=== PATIENT | male | born 1950 | race Hispanic/Latino ===

== ENCOUNTER 2018-07-16 05:34 | Outpatient (CLI) | payer BC, MEDICARE ==
[~2018-07-16] VITALS: Ht 167.6 cm; Wt 92.1 kg
[~2018-07-16 05:34] MED LIST: ASPI-586 PO; ASPI325T32 PO; HYDR-3820 PO; NAPR220C11 PO; TRAM50TA2 PO; WARF2.5T82 PO
== END 2018-07-16 11:04 | disposition home or self-care (01) ==
LOC: PREOP 05:34
PROVIDERS: ATTEND Surgery
DX: Z01.818 Encounter for other preprocedural examination (principal)

== ENCOUNTER 2018-07-23 10:56 | Day surgery (SDC) | payer BC, MEDICARE, OTHER ==
[~2018-07-23] VITALS: Ht 167.6 cm; Wt 92.1 kg
[2018-07-23] MEDS ORDERED: NS IV 500 ML 500 ML ONE (11:02)
[2018-07-23] MEDS ORDERED: NS IV 500 ML 500 ML IV PRN (11:06)
[2018-07-23] MEDS ORDERED: MIDAZOLAM 2 MG/2 ML (VERSED) VIAL IVP ONE (11:15)
[2018-07-23] MEDS ORDERED: LIDOCAINE JELLY 2% 6 ML SYRINGE MM PRN (11:15)
[2018-07-23] MEDS ORDERED: fentaNYL INJECTION 100 MCG/2 ML AMP IVP ONE (11:15)
[2018-07-23 11:23] VITALS: BP 122/77
[2018-07-23] MEDS ORDERED: LIDOCAINE JELLY 2% 6 ML SYRINGE ONE (11:30)
[2018-07-23] MEDS ORDERED: MIDAZOLAM 2 MG/2 ML (VERSED) VIAL ONE ×4 (11:30→11:31)
[2018-07-23] MEDS ORDERED: fentaNYL INJECTION 100 MCG/2 ML AMP ONE (11:30)
--- NOTE | 2018-07-23 13:56 | Conscious Sedation/ASA ---
Conscious Sedation Pre-Proced Time 13:30 ASA Score 2 For ASA 3 and 4: Consider anesthesia and medical clearance. Also, for patients with a history of failed moderate sedation consider anesthesia. Airway Lungs Heart ASA score ASA 1: a normal healthy patient ASA 2: a patient with a mild systemic disease (mid diabetes, controlled hypertension, obesity ASA 3: a patient with a severe systemic disease that limits activity (angina, COPD, prior Myocardial infarction) ASA 4: a patient with an incapacitating disease that is a constant threat to life (CHF, renal failure) ASA 5: a moribund patient not expected to survive 24 hrs. (ruptured aneurysm) ASA 6: a declared brain- patient whose organs are being harvested. For emergent operations, add the letter E after the classification Mallampati Classification Grade 2 Sedation Plan Analgesia, Amnesia, Plan communicated to team members, Discussed options with patient/fam, Discussed risks with patient/fam The patient is an appropriate candidate to undergo the planned procedure, sedation, and anesthesia. The patient immediately re-assessed prior to indication. JACQUELYN MARY MD July 23, 2018 13:56
--- NOTE | 2018-07-23 13:56 | Progress Note-Pre Operative ---
Pre-Operative Progress Note H&P Reviewed The H&P was reviewed, patient examined and no changes noted. Date Seen by Provider: July 23, 2018 Time Seen by Provider: 13:30 Date H&P Reviewed: July 23, 2018 Time H&P Reviewed: 13:30 Pre-Operative Diagnosis: screening o AJCQUELYN MARY MD July 23, 2018 13:56
--- NOTE | 2018-07-23 13:59 | Discharge Inst-Surgical ---
D/C Lap Instructions-TYAR Follow Up Activity as tolerated High Fiber Diet 25g or more per day Avoid Alcohol, Caffeine, Spicy [place] and Acid foods. Drink 64 fluid oz or more of fluids per day. Symptoms to Report: Fever over 101 degree F, Nausea/Vomiting If any problems/questions: Contact your physician or go to Emergency Room JACQUELYN MARY MD July 23, 2018 13:59
[2018-07-23] MEDS ORDERED: ACETAMINOPHEN 325 MG TABLET PO PRN (14:00)
[2018-07-23] MEDS ORDERED: ONDANSETRON 4 MG/2 ML (SDV) Z0FRAN IVP PRN (14:00)
[2018-07-23] MEDS ORDERED: morphine INJ 10 MG/ML 1ML (SYR OR VIAL) IVP PRN (14:00)
[2018-07-23] MEDS ORDERED: HYDROcodone/APAP 5 MG/325 MG (LORTAB) TAB PO PRN (14:00)
[2018-07-23 15:00] VITALS: BP 149/63
--- NOTE | 2018-07-23 15:13 | Progress Note-Post Operative ---
Post-Operative Progess Note Surgeon (s)/Front Desk Manager (s) Surgeon JACQUELYN MARY MD Front Desk Manager: none Pre-Operative Diagnosis screening colo Post-Operative Diagnosis mild chronic stage 2 ext and int hemorrhoids, small polyp rectum(2mm). Procedure & Operative Findings Date of Procedure 07/23/18 Procedure Performed/Findings colonoscopy with bx Anesthesia Type cs Estimated Blood Loss Estimated blood loss (mL): minimal Specimens/Packing Specimens Removed rectal polyp JACQUELYN MARY MD July 23, 2018 15:13
[2018-07-23 15:30] VITALS: BP 122/80
[2018-07-23 16:15] VITALS: BP 122/80
--- NOTE | 2018-07-23 21:47 | OPERATIVE REPORT ---
DATE OF SERVICE: 07/23/2018 ATTENDING PRIMARY CARE PHYSICIAN: Dr. Jad Correa. PREOPERATIVE DIAGNOSIS: Screening colonoscopy. POSTOPERATIVE DIAGNOSIS: Mild chronic stage II external and internal hemorrhoids, small polyp of the rectum 2 mm in size. PROCEDURE: Colonoscopy with biopsy. SURGEON: Jacquelyn Mary MD ANESTHESIA: Conscious sedation. ESTIMATED BLOOD LOSS: Minimal. FINDINGS: As above in the postop. DISPOSITION: The patient tolerated the procedure well. INDICATIONS: The patient is a 67-year-old male in need of a screening colonoscopy. He has not had a colonoscopy up to this point in his life. He states that he is otherwise doing well and does not report any issues with diarrhea nor constipation as well as no red blood per rectum nor any dark tarry stools. He also does not report any family history of colon cancer. DESCRIPTION OF PROCEDURE: The patient was brought to the endoscopy suite, laid in the left lateral decubitus position. After adequate IV pain and sedating medications and conscious sedation anesthesia, a digital rectal examination was performed. Mild chronic stage II external and internal hemorrhoids were identified, which were not actively edematous nor inflamed and no bleeding. Normal sphincter tone was felt and there were no palpable masses. Prostate gland was palpable and appeared normal. The endoscope was then intubated into the anus and the rectum gently insufflated. The endoscope was then advanced through the valves of [place] of the rectum with 1 polyp identified. This was small, approximately 2 mm in size. This was biopsied and destroyed using forceps and electrocautery with visualization of good hemostasis. The endoscope was then advanced to the remainder of the sigmoid colon where there were no diverticulosis. The endoscope was then advanced through the descending, transverse and ascending colon to the cecum. These segments were normal. The endoscope was then slowly withdrawn while taking a second look and suctioning of residual air with no additional findings. The patient tolerated the procedure well. We will recommend a high fiber diet with at least 30 grams of fiber per day as well as significant amounts of water daily to promote soft stools on a daily basis. The polyp appears to be a hyperplastic polyp versus a tubular adenoma and if this is confirmed on pathology, he may wait 10 years for his next colonoscopy. Job ID: [id number] DocumentID: [id number] Dictated Date: 07/23/2018 15:04:24 Freight And Passenger Agent Date: 07/23/2018 21:46:54 Dictated By: JACQUELYN MARY MD
== END 2018-07-23 16:15 | disposition home or self-care (01) ==
LOC: ENDO 10:56
PROVIDERS: ATTEND Surgery
DX: Z12.11 Encounter for screening for malignant neoplasm of colon (principal); K62.1 Rectal polyp; K64.1 Second degree hemorrhoids; M19.91 Primary osteoarthritis, unspecified site